=== PATIENT | female | born 1955 | race African-American/Black ===

== ENCOUNTER 2017-06-04 04:07 | Inpatient (IN) | payer OTHER ==
[~2017-06-04] VITALS: Ht 165.1 cm; Wt 94.3 kg
[2017-06-04] MEDS ORDERED: IPRATROPIUM BROM 0.5 MG/2.5ML INH SOL NEB ONE (04:15)
[2017-06-04] MEDS ORDERED: ALBUTEROL SULF 2.5 MG/0.5ML(0.5%) NEB SOLN NEB ONE (04:15)
[2017-06-04 04:41] LABS: Allen Test Yes; Base Excess -2.1 mmol/L (-2.0-2.0); Blood 02Sat 96.7 % (96-100); Blood COHb 0.8 % (0.5-1.5); Blood MetHb 0.3 % (0.0-1.5); HCO3 20.3 mmol/L (22-26.0); HHb 3.3 % (0.0-5.0); MODE NASAL CANNULA; O2Hb 95.6 % (94.0-97.0); PCO2 29.3 mmHg (35.0-45.0); PCO2(T) 29.3 mmHg (35.0-45.0); PO2 97.4 mmHg (80.0-100.0); PO2(T) 97.4 mmHg (80.0-100.0); Sample Type Arterial; pH 7.459 (7.350-7.450)
[2017-06-04 04:55] LABS: Basophils # (auto) 0.1 uL; Basophils % (auto) 0.8 % (0.0-2.0); Eosinophils # (auto) 0.1 uL; Hematocrit 45.5 % (36.0-46.0); Hemoglobin 15.2 g/dL (12.2-16.2); Lymphocytes # (auto) 1.9 uL; Lymphocytes % (auto) 18.5 % (10.0-50.0); Mean Corpuscular Hemoglobin 28.4 pg (28.0-32.0); Mean Corpuscular Hgb Conc. 33.4 g/dL (32.0-36.0); Mean Corpuscular Volume 85.2 fL (80.0-100.0); Mean Platelet Volume 8.5 fL (6.9-10.8); Monocytes # (auto) 0.5 uL; Monocytes % (auto) 5.1 % (0.0-12.0); Neutrophils # (auto) 7.9 uL; Neutrophils % (auto) 74.6 % (37.0-80.0); Nucleated Red Blood Cells % 0.2 %; Platelet Count (auto) 246 10^3/uL (140-450); Red Cell Distribution Width 17.7 % (11.8-14.3); White Blood Cell 10.5 10^3/uL (4.4-10.8)
[2017-06-04] MEDS ORDERED: cloNIDine HCL 0.1 MG TAB PO ONE (05:00)
[2017-06-04 05:37] LABS: Albumin 3.2 g/dL (3.4-5.0); BUN/Creatinine Ratio 13.8; Bilirubin, Total 1.4 mg/dL (0.2-1.0); Calcium 8.9 mg/dL (8.5-10.1); Magnesium 2.2 mg/dL (1.6-2.6); Potassium 3.2 mmol/L (3.5-5.1); Total Protein 7.3 g/dL (6.4-8.2)
[2017-06-04 05:39] LABS: INR 1.26 (0.9-1.15); Partial Thromboplastin Time 23.7 sec (22.64-33.71); Prothrombin Time 13.8 sec (9.37-12.3)
[2017-06-04] MEDS ORDERED: ASPirin 81 mg TAB PO ONE (06:00)
[2017-06-04 06:28] LABS: B-Type Natriuretic Peptide 2159.67 pg/mL (0-100)
[2017-06-04 06:33] LABS: Temperature: 21.3 C (20.0-25.0)
[2017-06-04] MEDS ORDERED: LABETALOL HCL 5 MG/ML ML 20ML VIAL IV ONE (07:15)
[2017-06-04] MEDS ORDERED: NITROGLYCERIN 0.4 MG SL TAB SL ONE (07:15)
[2017-06-04] MEDS ORDERED: KETOROLAC TROMETH 30 MG/ML 1ML VIAL IV ONE (07:15)
[2017-06-04] MEDS ORDERED: ENOXAPARIN SOD 80 MG/0.8ML SYRINGE SC ONE (08:45)
[2017-06-04] MEDS ORDERED: FUROSEMIDE 20 MG/2 ML VIAL IV ONE (09:15)
[2017-06-04] MEDS ORDERED: HYDROcodone-ACET 5/325MG TAB PO PRN (11:30)
[2017-06-04] MEDS ORDERED: ALBUTEROL SULF 2.5 MG/0.5ML(0.5%) NEB SOLN NEB PRN (11:30)
[2017-06-04] MEDS ORDERED: HYDROmorphone HCL 2 MG/ML VL IV PRN (11:30)
[2017-06-04] MEDS ORDERED: DOCUSATE SOD 100 MG CAP PO PRN (11:30)
[2017-06-04] MEDS ORDERED: ONDANSETRON HCL 4 MG/2 ML VIAL IV PRN (11:30)
[2017-06-04] MEDS ORDERED: POTASSIUM CHL 10% (20 MEQ/15ML) 15ml ORAL SOLN PO ONE (11:30)
[2017-06-04] MEDS ORDERED: LABETALOL HCL 5 MG/ML ML 20ML VIAL IV PRN (11:30)
[2017-06-04] MEDS ORDERED: IPRATROPIUM BROM 0.5 MG/2.5ML INH SOL NEB PRN (11:30)
[2017-06-04] MEDS ORDERED: NITROGLYCERIN 0.4 MG SL TAB SL PRN (11:30)
[2017-06-04] MEDS ORDERED: DEXTROSE (50%) 50ML SYRG IV PRN (11:45)
[2017-06-04] MEDS: METOPROLOL TARTRATE 25 MG TAB PO SCH ×2 (11:52→22:15)
[2017-06-04 13:05] VITALS: BP 143/88
[2017-06-04] MEDS: amLODIPine BESYLATE 5 MG TAB PO SCH (13:20)
[2017-06-04 16:00] VITALS: BP 144/79
[2017-06-04] MEDS ORDERED: PANTOPRAZOLE 40 MG TAB PO ONE (16:15)
[2017-06-04] MEDS: InsuLIN REG 1unit/0.01ml Soln (100units/ml) SC SCH ×2 (16:57→22:17)
[2017-06-04] MEDS: ACCU-CHEK COMFORT CURVE STRIP VI SCH ×2 (16:57→22:16)
[2017-06-04 19:49] VITALS: BP 147/95
[2017-06-04 20:32] VITALS: BP 147/95
[2017-06-04] MEDS: ATORVASTATIN 20 MG TAB PO SCH (22:13)
[2017-06-05 00:30] VITALS: BP 119/76
[2017-06-05 06:04] LABS: Basophils # (auto) 0.1 uL; Basophils % (auto) 0.6 % (0.0-2.0); Eosinophils # (auto) 0.1 uL; Eosinophils % (auto) 1.4 % (0.0-7.0); Hematocrit 43.6 % (36.0-46.0); Hemoglobin 14.3 g/dL (12.2-16.2); Lymphocytes # (auto) 1.8 uL; Lymphocytes % (auto) 18.7 % (10.0-50.0); Mean Corpuscular Hemoglobin 28.4 pg (28.0-32.0); Mean Corpuscular Hgb Conc. 32.8 g/dL (32.0-36.0); Mean Corpuscular Volume 86.5 fL (80.0-100.0); Mean Platelet Volume 9.1 fL (6.9-10.8); Monocytes # (auto) 0.7 uL; Monocytes % (auto) 7.9 % (0.0-12.0); Neutrophils # (auto) 6.8 uL; Neutrophils % (auto) 71.4 % (37.0-80.0); Nucleated Red Blood Cells % 0.2 %; Platelet Count (auto) 232 10^3/uL (140-450); Red Cell Distribution Width 17.5 % (11.8-14.3); White Blood Cell 9.5 10^3/uL (4.4-10.8)
[2017-06-05 06:23] LABS: BUN/Creatinine Ratio 15.1; Calcium 8.9 mg/dL (8.5-10.1); Magnesium 2.4 mg/dL (1.6-2.6); Potassium 3.8 mmol/L (3.5-5.1)
[2017-06-05] MEDS: InsuLIN REG 1unit/0.01ml Soln (100units/ml) SC SCH ×4 (07:00→22:35)
[2017-06-05] MEDS: ACCU-CHEK COMFORT CURVE STRIP VI SCH ×4 (07:00→22:34)
[2017-06-05 07:30] VITALS: BP 150/85
[2017-06-05] MEDS: ASPirin 81 mg TAB PO SCH (09:52)
[2017-06-05] MEDS: FUROSEMIDE 20 MG/2 ML VIAL IV SCH (09:52)
[2017-06-05] MEDS: POTASSIUM CHL 10% (20 MEQ/15ML) 15ml ORAL SOLN PO SCH (09:53)
[2017-06-05] MEDS: METOPROLOL TARTRATE 25 MG TAB PO SCH ×2 (09:53→22:00)
[2017-06-05] MEDS: PANTOPRAZOLE 40 MG TAB PO SCH (09:54)
[2017-06-05] MEDS: amLODIPine BESYLATE 5 MG TAB PO SCH (09:54)
[2017-06-05] MEDS ORDERED: ENOXAPARIN SOD 80 MG/0.8ML SYRINGE SC SCH ×2 (10:00)
[2017-06-05] MEDS ORDERED: FUROSEMIDE 20 MG/2 ML VIAL IV SCH (10:00)
[2017-06-05 11:56] VITALS: BP 138/98
[2017-06-05 12:22] LABS: Urine Bilirubin Negative (Negative); Urine Blood 2+ /uL (Negative); Urine Color Yellow (Yellow); Urine Glucose Normal (Normal); Urine Hyaline Cast FEW /lpf (0 - 2); Urine Ketone Negative (Negative); Urine Mucus FEW (None Seen); Urine Nitrite Negative (Negative); Urine RBC 65 /hpf (0 - 4); Urine Squamous Epithelial Cell FEW /hpf (<5); Urine Urobilinogen Normal (Negative)
[2017-06-05 13:00] VITALS: BP 134/84
[2017-06-05 22:00] VITALS: BP 122/74
[2017-06-05] MEDS: ATORVASTATIN 20 MG TAB PO SCH (22:00)
[2017-06-06 05:00] VITALS: BP 152/85
[2017-06-06] MEDS: ACCU-CHEK COMFORT CURVE STRIP VI SCH ×4 (06:55→22:01)
[2017-06-06] MEDS: InsuLIN REG 1unit/0.01ml Soln (100units/ml) SC SCH ×4 (06:55→22:01)
[2017-06-06 07:02] LABS: Basophils # (auto) 0.1 uL; Basophils % (auto) 0.6 % (0.0-2.0); Eosinophils # (auto) 0.1 uL; Eosinophils % (auto) 1.4 % (0.0-7.0); Hematocrit 43.2 % (36.0-46.0); Hemoglobin 14.2 g/dL (12.2-16.2); Lymphocytes # (auto) 1.9 uL; Lymphocytes % (auto) 21.5 % (10.0-50.0); Mean Corpuscular Hemoglobin 28.4 pg (28.0-32.0); Mean Corpuscular Hgb Conc. 32.9 g/dL (32.0-36.0); Mean Corpuscular Volume 86.5 fL (80.0-100.0); Mean Platelet Volume 9.1 fL (6.9-10.8); Monocytes # (auto) 0.6 uL; Neutrophils # (auto) 6.2 uL; Neutrophils % (auto) 69.5 % (37.0-80.0); Nucleated Red Blood Cells % 0.1 %; Platelet Count (auto) 233 10^3/uL (140-450); Red Cell Distribution Width 17.9 % (11.8-14.3); White Blood Cell 8.9 10^3/uL (4.4-10.8)
[2017-06-06 07:13] LABS: BUN/Creatinine Ratio 19.3; Calcium 9.1 mg/dL (8.5-10.1); Potassium 3.8 mmol/L (3.5-5.1)
[2017-06-06 08:05] LABS: Temperature: 21.8 C (20.0-25.0)
[2017-06-06 08:59] VITALS: BP 157/95
[2017-06-06] MEDS: amLODIPine BESYLATE 5 MG TAB PO SCH (09:19)
[2017-06-06] MEDS: METOPROLOL TARTRATE 25 MG TAB PO SCH ×2 (09:19→21:55)
[2017-06-06] MEDS: ASPirin 81 mg TAB PO SCH (09:20)
[2017-06-06] MEDS: PANTOPRAZOLE 40 MG TAB PO SCH (09:20)
[2017-06-06] MEDS: FUROSEMIDE 20 MG/2 ML VIAL IV SCH (09:20)
[2017-06-06] MEDS: POTASSIUM CHL 10% (20 MEQ/15ML) 15ml ORAL SOLN PO SCH (09:21)
[2017-06-06] MEDS ORDERED: ENOXAPARIN SOD 40 MG/0.4 ML SYRINGE SC SCH (10:00)
[2017-06-06 13:00] VITALS: BP 125/91
[2017-06-06 13:37] VITALS: BP 125/91
[2017-06-06 16:00] VITALS: BP 125/88
[2017-06-06] MEDS: ATORVASTATIN 20 MG TAB PO SCH (21:54)
[2017-06-06 22:04] VITALS: BP 125/104
== END 2017-06-06 23:59 | DRG 280 ==
LOC: ER 04:08 → TELE 04:09 → DOU IN ICU 14:30 → TELE-CENTR 06-05 13:46
PROVIDERS: ADMIT Internal Medicine; ATTEND Internal Medicine
DX: I21.4 Non-ST elevation (NSTEMI) myocardial infarction (principal); I50.43 Acute on chronic combined systolic (congestive) and diastolic (congestive) heart failure; J96.00 Acute respiratory failure, unspecified whether with hypoxia or hypercapnia; I42.9 Cardiomyopathy, unspecified; E11.22 Type 2 diabetes mellitus with diabetic chronic kidney disease; E66.01 Morbid (severe) obesity due to excess calories; I13.0 Hypertensive heart and chronic kidney disease with heart failure and stage 1 through stage 4 chronic kidney disease, or unspecified chronic kidney disease; N18.3 Chronic kidney disease, stage 3 (moderate); I25.10 Atherosclerotic heart disease of native coronary artery without angina pectoris; J44.1 Chronic obstructive pulmonary disease with (acute) exacerbation; E78.5 Hyperlipidemia, unspecified; E87.6 Hypokalemia; F17.210 Nicotine dependence, cigarettes, uncomplicated; I50.82 Biventricular heart failure; Z85.3 Personal history of malignant neoplasm of breast; Z86.73 Personal history of transient ischemic attack (TIA), and cerebral infarction without residual deficits; Z68.34 Body mass index [BMI] 34.0-34.9, adult
CPT/HCPCS: 36415; 36600; 71010; 78582; 80048; 80053; 80061; 81001; 82805; 82962; 83036; 83735; 83880; 84443; 84484; 85025; 85379; 85610; 85730; 87081; 93005; 93306; 93970; 94640; 96372; 96374; 96375; J1815; J1885